=== PATIENT | female | born 1985 | race Caucasian/White ===

== ENCOUNTER 2017-06-11 01:11 | Emergency (ER) | payer OTHER ==
[~2017-06-11] VITALS: Ht 160 cm; Wt 98.4 kg
[2017-06-11 01:53] VITALS: BP 113/67
--- NOTE | 2017-06-11 03:42 | PHYS DOC ---
Past Medical History Past Medical History: Seizure, Other Additional Past Medical Histor: YEAST Past Surgical History: No Surgical History Alcohol Use: Occasionally Drug Use: None Adult General Chief Complaint Chief Complaint: LACERATION/AVULSION HPI HPI Patient is a 31 year old female who presents with complaint of injury to the right hand. Injury took place approximately 40 minutes prior to arrival. Patient states she became angry with her for reasons not disclosed and punched a glass picture frame. Patient suffered lacerations to the 4th and 5th fingers of the right hand. Patient rates pain as 8/10 in the 5th finger. Patient states "I don't think I broke my fingers, but the cuts really hurt." Patient rinsed the lacerations with water prior to arrival. Review of Systems Review of Systems Constitutional: Denies fever or chills [] Eyes: Denies change in visual acuity, redness, or eye pain [] HENT: Denies nasal congestion or sore throat [] Musculoskeletal: Denies back pain or joint pain [] Integument: Lacerations to right 4th and 5th fingers [] Neurologic: Denies headache, focal weakness or sensory changes [] Allergies Allergies Allergies Coded Allergies Type Severity Reaction Last Updated Verified No Known Drug Allergies 07/21/15 No Physical Exam Physical Exam Constitutional: Alert, afebrile, appears in moderate discomfort. HENT: Normocephalic, atraumatic, bilateral external ears normal, oropharynx moist, no oral exudates, nose normal. [] Skin: Warm, dry, superficial laceration overlying dorsal right 4th PIP joint with no obvious foreign body, 1 cm curvilinear laceration overlying dorsal right 5th PIP joint, no obvious foreign body or tendon injury . [] Extremities: Tenderness to palpation at right 5th PIP joint, no cyanosis, no clubbing, ROM intact, no edema. [] Neurologic: Alert and oriented X 3, normal motor function, normal sensory function, no focal deficits noted. [] Current Patient Data Vital Signs Vital Signs Date Time Temp Pulse Resp B/P (MAP) Pulse Ox O2 Delivery O2 Flow Rate FiO2 06/11/17 01:53 98.7 88 18 113/67 (82) 95 Room Air 98.7 EKG EKG not performed[] Radiology/Procedures Radiology/Procedures right hand x-ray offered to patient to r/o fracture and retained foreign body. Declined by patient.[] Course & Med Decision Making Course & Med Decision Making Pertinent Labs and Imaging studies reviewed. (See chart for details) Patient's wounds were cleaned with tap water and chlorhexidine soap. Discussed wound closure options. Patient opted for tissue adhesive and temporary immobilization of 4th and 5th digits. Skin Affix tissue adhesive was applied to both wounds followed by application of steri strips. aluminum finger splints were placed over the 4th and 5th digits to immobilize both PIP joints. Advised follow up with primary doctor in 7 days if symptoms not improving. Cautioned patient that fingers would need to remain straight for the next 7-10 days to keep wound closure in place. Advised return to the emergency department for any worsening symptoms. Patient voiced understanding and in agreement with treatment plan. Dragon Disclaimer Dragon Disclaimer This electronic medical record was generated, in whole or in part, using a voice recognition dictation system. Departure Departure Impression: Primary Impression: Finger laceration Additional Impression: Laceration of finger, ring Disposition: 01 HOME, SELF-CARE Condition: IMPROVED Referrals: YAO ASTUDILLO MD (PCP) Patient Instructions: Laceration Care, Adult, Tissue Adhesive Wound Care Additional Instructions: Be sure to keep your fingers immobilized for the next 7-10 days until your wounds heal. Follow-up with your primary doctor in the next 7 days of symptoms are not improving. Return to emergency department for any worsening symptoms. Problem Qualifiers Primary Impression: Finger laceration Encounter type: initial encounter Finger: little finger Damage to nail status: without damage Foreign body presence: without foreign body Laterality: right Qualified Codes: S61.216A - Laceration without foreign body of right little finger without damage to nail, initial encounter Additional Impression: Laceration of finger, ring Encounter type: initial encounter Damage to nail status: without damage Foreign body presence: without foreign body Laterality: right Qualified Codes: S61.214A - Laceration without foreign body of right ring finger without damage to nail, initial encounter VLAD KRISHNAMURTHY MD Jun 11, 2017 03:42
== END 2017-06-11 03:52 | disposition home or self-care (01) ==
LOC: ER 01:33
DX: S61.216A Laceration without foreign body of right little finger without damage to nail, initial encounter (principal); S61.214A Laceration without foreign body of right ring finger without damage to nail, initial encounter; Y28.8XXA Contact with other sharp object, undetermined intent, initial encounter; Y93.89 Activity, other specified; Y99.8 Other external cause status; Y92.89 Other specified places as the place of occurrence of the external cause
CPT/HCPCS: 12001; 99283-25

== ENCOUNTER 2017-11-21 11:15 | Emergency (ER) | payer SELFPAY, OTHER | END 2017-11-21 11:50 | disposition home or self-care (01) | LOC: ER 11:15 | DX: J02.9 Acute pharyngitis, unspecified (principal) | CPT/HCPCS: 99283 ==

== ENCOUNTER 2020-07-16 03:59 | Emergency (ER) | payer MEDICAID ==
[~2020-07-16] VITALS: Ht 160 cm; Wt 96.0 kg
[~2020-07-16 03:59] MED LIST: AMOX500C PO; PRED20TA PO
[2020-07-16 04:04] VITALS: BP 111/69
--- NOTE | 2020-07-16 04:45 | RAD ---
Right ankle x-rays 3 views HISTORY: Right ankle pain. Right foot pain. FINDINGS: No fracture. No dislocation. No talus osteochondral lesion. Soft tissues are unremarkable. Spur the plantar calcaneus. IMPRESSION: No acute osseous injury. Right foot x-rays 3 views HISTORY: Right foot pain. FINDINGS: No fracture. No dislocation. Spur the plantar calcaneus. Soft tissues unremarkable. IMPRESSION: No acute osseous injury. Electronically signed by: Vasiliy Gilbert MD (07/16/2020 4:42 AM) [facility]
--- NOTE | 2020-07-16 04:58 | PHYS DOC ---
Past Medical History Past Medical History: Seizure, Other Additional Past Medical Histor: YEAST Past Surgical History: No Surgical History Smoking Status: Current Every Day Smoker Alcohol Use: Occasionally Drug Use: None General Adult EDM: Chief Complaint: FOOT INJURY PAIN HPI: HPI: 34-year-old female who denies any significant past medical history, presents the ED with complaints of left leg pain located over her distal foot that occurred just prior to arrival when she was going down the stairs, believes she stepped on a toy Lego and rolled her ankle. No prior injury to this ankle. Has pain with ambulation. Is a tobacco smoker and follows at [id number]. Not hit her head or lose consciousness. Denies any alcohol or drug use. No associated chest pain, dyspnea, neurologic deficits, anesthesia, urine or bowel retention or incontinence, dizziness or lightheadedness. Review of Systems: Review of Systems: Constitutional: Denies fever or chills. [] Eyes: Denies change in visual acuity. [] HENT: Denies nasal congestion or sore throat. [] Respiratory: Denies cough or shortness of breath. [] Cardiovascular: Denies chest pain or edema. [] GI: Denies abdominal pain, nausea, vomiting, bloody stools or diarrhea. [] : Denies dysuria. [] Musculoskeletal: Denies back pain Integument: Denies rash. [] Neurologic: Denies headache, focal weakness or sensory changes. [] Endocrine: Denies polyuria or polydipsia. [] Lymphatic: Denies swollen glands. [] Psychiatric: Denies depression or anxiety. [] Heart Score: Risk Factors: Risk Factors: DM, Current or recent (<one month) smoker, HTN, HLP, family history of CAD, obesity. Risk Scores: Score 0 - 3: 2.5% MACE over next 6 weeks - Discharge Home Score 4 - 6: 20.3% MACE over next 6 weeks - Admit for Clinical Observation Score 7 - 10: 72.7% MACE over next 6 weeks - Early Invasive Strategies Allergies: Allergies: Allergies Coded Allergies Type Severity Reaction Last Updated Verified No Known Drug Allergies 07/21/15 No Physical Exam: PE: Constitutional: Well developed, well nourished, no acute distress, non-toxic ap pearance. [] HENT: Normocephalic, atraumatic, Eyes: PERRLA, EOMI, conjunctiva normal, no discharge. [] Neck: Normal range of motion, no tenderness, supple, no stridor. [] Cardiovascular:Heart rate regular rhythm, no murmur [] Lungs & Thorax: Bilateral breath sounds clear to auscultation [] Abdomen: Bowel sounds normal, soft, no tenderness, no masses, no pulsatile masses. [] Skin: Warm, dry, no erythema, no rash. [] Back: No tenderness, no CVA tenderness. [] Extremities: no cyanosis, no clubbing, +1-3 left metatarsal ttp, no pain over left knee/hip Neurologic: Alert and oriented X 3, normal motor function, normal sensory function, no focal deficits noted. [] Psychologic: Affect normal, judgement normal, mood normal. [] Current Patient Data: Vital Signs: Vital Signs Date Time Temp Pulse Resp B/P (MAP) Pulse Ox O2 Delivery O2 Flow Rate FiO2 07/16/20 04:04 98.1 82 16 111/69 (83) 98 Room Air 98.1 EKG: EKG: [] Radiology/Procedures: Radiology/Procedures: IMAGING REPORT Signed PATIENT: BIA GUTIERREZ ACCOUNT: [id number] : 1985 LOCATION: ER AGE: 34 SEX: F EXAM STATUS: REG ER ORD. PHYSICIAN: DARLENE WOLFE DO REASON: foot pain PROCEDURE: FOOT RIGHT 3V Right ankle x-rays 3 views HISTORY: Right ankle pain. Right foot pain. FINDINGS: No fracture. No dislocation. No talus osteochondral lesion. Soft tissues are unremarkable. Spur the plantar calcaneus. IMPRESSION: No acute osseous injury. Right foot x-rays 3 views HISTORY: Right foot pain. FINDINGS: No fracture. No dislocation. Spur the plantar calcaneus. Soft tissues unremarkable. IMPRESSION: No acute osseous injury. Electronically signed by: Radha Gilbert MD (07/16/2020 4:42 AM) [facility] [place] DICTATED and SIGNED BY: RADHA GILBERT MD DATE: 07/16/20 044 RN informed of findings. Short posterior left leg splint applied by RN. The splint is checked by myself, with appropriate stabilization of the injury. Distal capillary refill normal and distal neurologic function intact Course & Med Decision Making: Course & Med Decision Making Pertinent Labs and Imaging studies reviewed. (See chart for details) Concern for likely soft tissue injury to left foot, x-rays revealing no fra cture. Patient was splinted and given crutches. Strict ED return precautions given for severe pain or neurologic deficits. May benefit from repeat x-ray in 2 weeks if pain persists. Conservative treatment with [id number] analgesia and rice instructions. Encouraged urgent outpatient follow-up with PMD and Ortho. Life-threatening processes were considered but are low suspicion at this time, given history and physical exam. Pt was educated on all prescription medications and adverse effects. All patient's questions were answered and pt was stable at time of discharge. Life/limb-threatening differential includes but is not limited to, fracture, dislocation, laceration, osteomyelitis, compartment syndrome, neurovascular injury or deficit, infection (abscess, cellulitis, septic arthritis), head/neck trauma, tendon or ligament injury. I spoken with the patient and her caregivers. I explained the patient's condition, diagnoses and treatment plan based on the information available to me at this time. I have answered the patient and her caregiver's questions and addressed any concerns. The patient and her caregivers have a good understanding of patient's diagnosis, condition and treatment plan as can be expected at this point. Vital signs have been stable. Patient's condition is stable and appropriate for discharge from the emergency department. Patient will pursue further outpatient evaluation with primary care physician or other designated or consulting physician as outlined in the discharge instr uctions. The patient and/or caregivers are agreeable to this plan of care and follow-up instructions have been explained in detail. The patient and/or caregivers have received these instructions in written form and have expressed an understanding of the discharge instructions. The patient and/or caregivers are aware that any significant change of condition or worsening of symptoms should prompt immediate return to this or the closest emergency department or call to 911. Ivelisse Disclaimer: Ivelisse Disclaimer: This electronic medical record was generated, in whole or in part, using a voice recognition dictation system. Departure Departure Impression: Primary Impression: Foot pain, right Additional Impression: Calcaneal spur of right foot Disposition: HOME, SELF-CARE Condition: STABLE Referrals: NO PCP (PCP) FOLLOW UP WITH FAMILY MEDICINE: Family Medicine Address: [address] [place] [address], [address] [address] Patient Instructions: Crutch Use, Foot Contusion, RICE - Routine Care for Injuries, Splint Care, [id number] Additional Instructions: FOLLOW UP WITH ORTHOPEDICS: Orthopaedic Sports Medicine Orthopaedic Surgery [facility] Address: [address], [address] [place] [address] EMERGENCY DEPARTMENT GENERAL DISCHARGE INSTRUCTIONS Thank you for coming to [facility] Emergency Department (ED) today and trusting us with you care. We trust that you had a positive experience in our Emergency Department. If you wish to speak to the department management, you may call the Director at [phone]. YOUR FOLLOW UP INSTRUCTIONS ARE FOLLOWS: 1. Do you have a private Doctor? If you do not have a private doctor, please ask for a resource list of physicians or clinics that may be able to assist you with follow up care. 2. The Emergency Physicain has interpreted your x-rays. The X-Ray specialist will also review them. If there is a change in the findings, you will be notified in 48 hours when at all possible. 3. A lab test or culture has been done, your results will be reviewed and you will be notified if you need a change in treatment. ADDITIONAL INSTRUCTIONS AND INFORMATION: 1. Your care today has been supervised by a physician who is specially trained in emergency care. Many problems require more than one evaluation for a complete diagnosis and treatment. We recommend that you schedule your follow up appointment as recommended to ensure complete treatment of you illness or injury. If you are unable to obtain follow up care and continue to have a problem, or if your condition worsens, we recommend that you return to the ED. 2. We are not able to safely determine your condition over the phone nor are we able to give sound medical advice over the phone. For these safety reasons, if you call for medical advice we will ask you to come to the ED for further evaluation. 3. If you have any questions regarding these discharge instructions please call the ED at [phone]. SAFETY INFORMATION: In the interest of safety, wellness, and injury prevention; we encourage you to wear your sealbelt, if you smoke; quite smoking, and we encourage family to use a protective helmet for bicycling and other sporting events that present an increased risk for head injury. IF YOUR SYMPTOMS WORSEN OR NEW SYMPTOMS DEVELOP, OR YOU HAVE CONCERNS ABOUT YOUR CONDITION; OR IF YOUR CONDITION WORSENS WHILE YOU ARE WAITING FOR YOUR FOLLOW UP APPOINTMENT; EITHER CONTACT YOUR PRIMARY CARE DOCTOR, THE PHYSICIAN WHOSE NAME AND NUMBER YOU WERE GIVEN, OR RETURN TO THE ED IMMEDIATELY. Scripts Ibuprofen (IBUPROFEN) 800 Mg Tablet 800 MG PO PRN Q8HRS PRN for INFLAMMATION for 4 Days, #20 TAB Prov: DARLENE WOLFE DO 07/16/20 DARLENE WOLFE DO Jul 16, 2020 04:58
[2020-07-16] MEDS ORDERED: IBUP-1060 PO (05:07)
[2020-07-16] MEDS ORDERED: IBUPROFEN 400 MG TABLET. PO ONE (05:30)
== END 2020-07-16 06:08 | disposition home or self-care (01) ==
LOC: ER 03:59
DX: M79.671 Pain in right foot (principal); M77.31 Calcaneal spur, right foot; M25.561 Pain in right knee; F17.200 Nicotine dependence, unspecified, uncomplicated; Z98.890 Other specified postprocedural states
CPT/HCPCS: 29515; 73610; 73630; 99284

== ENCOUNTER 2021-01-04 08:07 | Emergency (ER) | payer MEDICAID ==
[~2021-01-04] VITALS: Ht 160 cm; Wt 98.0 kg
[~2021-01-04 08:07] MED LIST changes: +IBUP-1060 PO
[2021-01-04 08:30] VITALS: BP 111/69
--- NOTE | 2021-01-04 08:57 | ED.ADGEN ---
Past Medical History Past Medical History: Seizure, Other Additional Past Medical Histor: YEAST Past Surgical History: No Surgical History Smoking Status: Current Every Day Smoker Alcohol Use: Occasionally Drug Use: None General Adult EDM: Chief Complaint: TEST HPI: HPI: Patient is a 35-year-old female who presents to the emergency room requesting a test. Patient states that she has been having nausea all day for the last several days. She believes that she is about 3 weeks as she started having unprotected intercourse with beginning of this month. She is not on any kind of control. She denies any vaginal bleeding or discharge. She does not have any abdominal pain. She denies any urinary symptoms. Patient states that she took a test today that was negative. She is requesting a blood test. Review of Systems: Review of Systems: Complete ROS is negative unless otherwise documented in HPI Allergies: Allergies: Allergies Coded Allergies Type Severity Reaction Last Updated Verified No Known Drug Allergies 07/21/15 No Physical Exam: PE: General: Awake, alert, NAD. Well Nourished, well hydrated. Cooperative HEENT: Atraumatic, EOMI, PERRL, airway patent, moist oral mucosa Neck: Supple, trachea midline Respiratory: CTA bilaterally, normal effort, no wheezing/crackles CV: RRR, no murmur, cap refill <2 GI: Soft, nondistended, nontender, no masses MSK: No obvious deformities Skin: Warm, dry, intact Neuro: A&O x3, speech NL, sensory and motor grossly intact, no focal deficits Psych: Normal affect, normal mood, not suicidal or homicidal Current Patient Data: Labs: Laboratory Tests Test 01/04/21 08:31 POC Urine HCG, Qualitative Hcg negative (Negative) EKG: EKG: [] Heart Score: C/O Chest Pain: N/A Risk Factors: Risk Factors: DM, Current or recent (<one month) smoker, HTN, HLP, family history of CAD, obesity. Risk Scores: Score 0 - 3: 2.5% MACE over next 6 weeks - Discharge Home Score 4 - 6: 20.3% MACE over next 6 weeks - Admit for Clinical Observation Score 7 - 10: 72.7% MACE over next 6 weeks - Early Invasive Strategies Radiology/Procedures: Radiology/Procedures: [] Course & Med Decision Making: Course & Med Decision Making Pertinent Labs and Imaging studies reviewed. (See chart for details) Patient is a 35-year-old female who presents to the emergency room requesting a blood test. She did have a negative urine test here in the emergency room. I have discussed with the patient that the urine and blood tests are fairly similar and at 6 days late from her menstrual cycle it is likely that if she was it would be positive. I discussed with her that she should repeat the test in a couple of days and that a blood test is not indicated at this time. I did offer her work-up for her ongoing nausea and patient states that she does not need that she knows that she is . Patient then eloped. Ivleisse Disclaimer: Ivelisse Disclaimer: This electronic medical record was generated, in whole or in part, using a voice recognition dictation system. Departure Departure Impression: Primary Impression: test negative Disposition: 07 AMA/ELOPED/LWBS Condition: STABLE Referrals: FRAN MCPHERSON MD (PCP) CINDY RODRIGUEZ MD Jan 04, 2021 08:57
== END 2021-01-04 08:58 | disposition left against medical advice (07) ==
LOC: ER 08:07
DX: O26.891 Other specified pregnancy related conditions, first trimester (principal); R11.0 Nausea; F17.200 Nicotine dependence, unspecified, uncomplicated
CPT/HCPCS: 81025; 99282